=== PATIENT | male | born 1945 | race Caucasian/White ===

== ENCOUNTER 2025-04-03 10:38 | Outpatient (CLI) | payer MEDICARE | END 2025-04-03 10:39 | disposition home or self-care (01) | LOC: CSHRAD 10:38 | PROVIDERS: ATTEND Otolaryngology Otolaryngic Allergy | DX: R13.10 Dysphagia, unspecified (principal); K21.9 Gastro-esophageal reflux disease without esophagitis | CPT/HCPCS: 74220 ==